=== PATIENT | male | born 1985 ===

== ENCOUNTER 2017-02-27 04:50 | Emergency (ER) | payer SELFPAY ==
[2017-02-27 04:57] VITALS: TEMP 98.6; O2SAT 96
--- NOTE | 2017-02-27 05:08 | ED PDOC ---
HPI: Psych/Substance Abuse Time Seen by Provider: 02/27/17 04:59 Chief Complaint (Nursing): Alcohol Ingestion Chief Complaint (Provider): ETOH History Per: Patient Additional Complaint(s): 31 yo male, no PMH, presents to ED BIB police in order to undergo clearance for incarceration. Pt without any complaints, admits to drinking tonight. Police admit Pt is calm and cooperative, just drank tonight. Past Medical History Reviewed: Nursing Documentation, Vital Signs Vital Signs: Last Vital Signs Temp 98.6 F 02/27/17 04:55 Pulse 122 H 02/27/17 04:55 Resp 18 02/27/17 04:55 BP 127/88 02/27/17 04:55 Pulse Ox 96 02/27/17 04:55 - Medical History PMH: Hypothyroidism - Surgical History Surgical History: No Surg Hx - Family History Family History: States: Unknown Family Hx - Living Arrangements Living Arrangements: With Family - Social History Current smoker - smoking cessation education provided: No - Home Medications Home Medications: Ambulatory Orders Medication Instructions Recorded Levothyroxine Sodium [Levo-T] 300 mcg PO DAILY #30 tablet 01/28/17 - Allergies Allergies/Adverse Reactions: Allergies Allergy/AdvReac Type Severity Reaction Status Date / Time No Known Allergies Allergy Verified 02/27/17 04:54 Review of Systems ROS Statement: Except As Marked, All Systems Reviewed And Found Negative Physical Exam - Reviewed Nursing Documentation Reviewed: Yes Vital Signs Reviewed: Yes - Physical Exam Appears: Positive for: Well, Non-toxic, No Acute Distress Head Exam: Positive for: ATRAUMATIC, NORMAL INSPECTION, NORMOCEPHALIC Skin: Positive for: Normal Color, Warm, DRY Eye Exam: Positive for: EOMI, Normal appearance, PERRL ENT: Positive for: Normal ENT Inspection Neck: Positive for: Normal, Painless ROM Cardiovascular/Chest: Positive for: Regular Rate, Rhythm Respiratory: Positive for: CNT, Normal Breath Sounds Gastrointestinal/Abdominal: Positive for: Normal Exam, Bowel Sounds, Soft Back: Positive for: Normal Inspection Extremity: Positive for: Normal ROM Neurologic/Psych: Positive for: Alert, Oriented - ECG O2 Sat by Pulse Oximetry: 96 Medical Decision Making Medical Decision Making: Pt underwent crisis eval, see note. Cleared for incarceration Disposition - Clinical Impression Clinical Impression: Alcohol ingestion - Patient ED Disposition Is Patient to be Admitted: No - Disposition Disposition: Discharged/Transfer to Law Enforcement Disposition Time: :09 Condition: STABLE Forms: [facility] (Polish) - POA Present On Arrival: None
[2017-02-27 05:27] VITALS: BP 138/64; PULSE 105; RESP 16
== END 2017-02-27 05:33 ==
LOC: H.ER 04:50
DX: F10.10 Alcohol abuse, uncomplicated (principal); E03.9 Hypothyroidism, unspecified